=== PATIENT | male | born 1950 | race Caucasian/White ===

== ENCOUNTER 2018-05-10 12:07 | Observation (INO) ==
[2018-05-10 12:39] LABS: Blood Urea Nitrogen 22 mg/dL (7-18)
--- NOTE | 2018-05-10 14:13 | History & Physical Report ---
*Admission Date: 05/10/18 *Chief complaint: abdominal pain *History of present illness: Mr. Salvador is a 67yo M with Hx of HTN, Obesity, Anxiety, and NIDDM who presented to clinic with 1 night of left lower abdominal pain radiating to groin, Nausea, Emesis. Denies dysuria, flank pain, diarrhea. He presented to clinic where he reported being up all night with symptoms. Most prominent in Left lower abd. Pain causing him to double over. Had a single episode of similar Sx 1 week ago that self resolved. Denies hematuria, stream not as strong. Still drinking and staying hydrated. Sent to [facility] for CTR abd/pelvis. Imaging concerning for incarcerated bowel vs colonic fat. Admitted to Med service for Obs and Surgery consult. - no Hx in Pt of Kidney stones, or in family - no Hx of diverticulitis/osis - last C-scope in Jan 2017. Better over the past hour, incarcerated hernia left inguinal region. [facility] History Medical History: Reports:: Cancer, Hyperlipidemia, Hypertension Other Medical History: Reports: Arthritis, Other - *Social History Smoking Status: Unknown if ever smoked Alcohol Intake: never *Family Hx:: No significant family history Review of Systems - Review of Systems Review of systems:: pertinent systems reviewed and negative unless documented below Meds Home Medications Medication Instructions Recorded Confirmed Type allopurinol 100 mg tablet 100 mg PO HS 07/07/17 05/10/18 History bupropion HCl XL 300 mg 24 hr 300 mg PO QDAY tab 07/07/17 05/10/18 History tablet, extended release cetirizine 10 mg tablet 10 mg PO QDAY 07/07/17 05/10/18 History duloxetine 60 mg capsule,delayed 60 mg PO HS 07/07/17 05/10/18 History release lisinopril 5 mg tablet 5 mg PO QDAY 07/07/17 05/10/18 History omeprazole 20 mg capsule,delayed 20 mg PO BID 07/07/17 05/10/18 History release rosuvastatin 10 mg tablet 10 mg PO QHS tab 07/07/17 05/10/18 History tamsulosin 0.4 mg capsule 0.8 mg PO QHS cap 07/07/17 05/10/18 History Celecoxib 200 mg PO BID 05/10/18 05/10/18 History Metformin HCl 1,000 mg PO BID 05/10/18 05/10/18 History Allergies Allergy/AdvReac Type Severity Reaction Status Date / Time NSAIDS (Non-Steroidal Allergy Unknown I-HIVES Verified 05/10/18 15:36 Anti-Inflamma [NSAIDS (NON-STEROIDAL ANTI-INFLAMMA] Exam Vital signs and Labs for Last 24 Hours: Temp Pulse Resp BP Pulse Ox 97.9 F 95 H 18 113/73 97 05/10/18 14:05 05/10/18 14:05 05/10/18 14:05 05/10/18 14:05 05/10/18 14:05 Laboratory Results - last 24 hr 05/10/18 12:17: BUN 22 H, Creatinine 1.08, Estimated GFR 69, Est GFR ( Amer) 83 I & O for Last 24 hours: Intake & Output 05/07/18 05/08/18 05/09/18 05/10/18 23:59 23:59 23:59 23:59 Weight 100.386 kg Narrative: Pleasant and Cooperative, in mild distress leaning forward on exam table, small beads of sweat on his forehead RRR, No m/r/g/h, Nl S1S2, No JVD, 2(+) symmetric pulses, No edema, LCTAB, No wheezes, crackles or rhonchi, Good air movement no CVA tenderness,, soft, NT/ND, BS present Tender firm, unreducable, palpable fullness in left lower abdomen into inguinal region, tender hernia in the left portion of scrotum. Testes descended bilaterally, nontender Assessment and Plan (1) Inguinal hernia of left side without obstruction or gangrene Current visit: Yes Status: Acute Category: Medical Code(s): K40.90 - Unilateral inguinal hernia, without obstruction or gangrene, not specified as recurrent Surgery consulted, appreciate recs - reduced at bedside - keep overnight to monitor for recurrence and PO tolerance - follow-up outpatient for planned surgical intervention barring further recurrence during inpatient (2) Essential hypertension Current visit: Yes Status: Chronic Category: Medical Code(s): I10 - Essential (primary) hypertension POA, resume home regimen (3) Diabetes Current visit: Yes Status: Chronic Qualifiers: Diabetes mellitus type: type 2 Diabetes mellitus [employer] insulin use: without custodial use Diabetes mellitus complication status: without complication Qualified Code(s): E11.9 - Type 2 diabetes mellitus without complications Category: Medical Code(s): E11.9 - Type 2 diabetes mellitus without complications Well controlled on Metformin, control with diabetic diet. No Insulin needed
--- NOTE | 2018-05-10 14:45 | Pharmacy Consult Notes ---
[facility] Pharmacy VTE Monitoring - Patient Demographics Admission date: 05/10/18 Report Date: 05/10/18 Time: 14:44 Allergies/Adverse Reactions: Patient Allergies NSAIDS (Non-Steroidal Anti-Inflamma [NSAIDS (NON-STEROIDAL ANTI-INFLAMMA] Allergy (Unknown, Verified 07/07/17 11:01) I-HIVES Height: 1.83 m Weight: 100.386 kg Patient Problems: Current Active Problems Inguinal hernia of left side without obstruction or gangrene (Acute) - VTE Risk Labs: VTE Related Lab Results BUN 22 mg/dL (7-18) H 05/10/18 12:17 Creatinine 1.08 mg/dL (0.70-1.30) 05/10/18 12:17 Clinical Trial Participant: No - Prophylaxis VTE Prophylaxis Ordered?: Yes Types of VTE Prophylaxis: TEDS Knee High
[2018-05-10 15:01] LABS: Basophils % 0.1 % (0.1-2.0); Eosinophils # 0.1 K/mm3 (0.0-0.4); Eosinophils % 0.6 % (0.1-12.0); Hematocrit 44.8 % (42.0-52.0); Hemoglobin 14.9 g/dL (14.1-18.0); Lymphocytes # 1.5 K/mm3 (0.7-4.5); Mean Corpuscular HGB Conc 33.4 g/dL (31.8-35.4); Mean Corpuscular Hemoglobin 29.4 pg (27.0-31.2); Mean Corpuscular Volume 88.3 fl (80-94); Mean Platelet Volume 10.2 fl (7.4-10.4); Monocytes # 0.5 K/mm3 (0.1-1.0); Monocytes % 5.3 % (1.7-9.3); Neutrophils # 6.6 K/mm3 (1.8-7.8); Platelet Count 160 K/mm3 (142-424); Red Blood Count 5.08 M/mm3 (4.60-6.20); Red Cell Distribution Width 13.1 % (11.5-17.5); White Blood Count 8.6 K/mm3 (4.8-10.8)
[2018-05-10 15:17] LABS: Anion Gap 14.1 mEq/L (5-15); Calcium 9.2 mg/dL (8.5-10.1); Potassium 4.1 mmoL/L (3.5-5.1)
--- NOTE | 2018-05-10 16:36 | Consult Report ---
*Admission Date: 05/10/18 *Chief complaint: Left groin pain *History of present illness: Patient is a 67-year-old white male. He began experiencing left lower quadrant and groin pain yesterday evening. He presented to his primary care physician's office today and was found to have a tender palpable masslike area. Incarcerated versus strangulated hernia was suspected. Patient had CT scan of the abdomen and pelvis ordered. This revealed findings of definite hernia. Surgery was contacted and recommendations were made. Review of Systems - Review of Systems Review of systems:: pertinent systems reviewed and negative unless documented b ow [facility] History Medical History: Reports:: Cancer, Diabetes Mellitus Type 2, Hyperlipidemia, Hypertension Denies:: Diabetes Mellitus Type 1, MRSA Other Medical History: Reports: Arthritis, Cataracts, Other Laterality Cases: Left: Cataract Amputation: No - *Social History Smoking Status: Unknown if ever smoked Alcohol Intake: never Occupational Status: retired Household Members: spouse - Psychiatric History Expresses thoughts of harming self/others: None Suicide Plan Description: No Plan Meds Home Medications Medication Instructions Recorded Confirmed Type allopurinol 100 mg tablet 100 mg PO HS 07/07/17 05/10/18 History bupropion HCl XL 300 mg 24 hr 300 mg PO QDAY tab 07/07/17 05/10/18 History tablet, extended release cetirizine 10 mg tablet 10 mg PO QDAY 07/07/17 05/10/18 History duloxetine 60 mg capsule,delayed 60 mg PO HS 07/07/17 05/10/18 History release lisinopril 5 mg tablet 5 mg PO QDAY 07/07/17 05/10/18 History omeprazole 20 mg capsule,delayed 20 mg PO BID 07/07/17 05/10/18 History release rosuvastatin 10 mg tablet 10 mg PO QHS tab 07/07/17 05/10/18 History tamsulosin 0.4 mg capsule 0.8 mg PO QHS cap 07/07/17 05/10/18 History Celecoxib 200 mg PO BID 05/10/18 05/10/18 History Metformin HCl 1,000 mg PO BID 05/10/18 05/10/18 History Allergies Allergy/AdvReac Type Severity Reaction Status Date / Time NSAIDS (Non-Steroidal Allergy Unknown I-HIVES Verified 05/10/18 15:36 Anti-Inflamma [NSAIDS (NON-STEROIDAL ANTI-INFLAMMA] Exam Vital signs and Labs for Last 24 Hours: Temp Pulse Resp BP Pulse Ox 97.9 F 95 H 18 113/73 97 05/10/18 14:05 05/10/18 14:05 05/10/18 14:05 05/10/18 14:05 05/10/18 14:05 Laboratory Results - last 24 hr 05/10/18 12:17: BUN 22 H, Creatinine 1.08, Estimated GFR 69, Est GFR ( Amer) 83 05/10/18 14:30: WBC 8.6, RBC 5.08, Hgb 14.9, Hct 44.8, MCV 88.3, MCH 29.4, MCHC 33.4, RDW 13.1, Plt Count 160, MPV 10.2, Neut % (Auto) 77.0, Lymph % (Auto) 17.0, [place] % (Auto) 5.3, Eos % (Auto) 0.6, Baso % (Auto) 0.1, Neut # (Auto) 6.6, Lymph # (Auto) 1.5, [place] # (Auto) 0.5, Eos # (Auto) 0.1, Baso # (Auto) 0.0 05/10/18 14:30: Sodium 134 L, Potassium 4.1, Chloride 98, Carbon Dioxide 26, Anion Gap 14.1, BUN 22 H, Creatinine 1.20, Estimated Creat Clear 87, Estimated GFR 61, Est GFR ( Amer) 74, Glucose 104, Calcium 9.2 I & O for Last 24 hours: Intake & Output 05/08/18 05/09/18 05/10/18 05/11/18 11:59 11:59 11:59 11:59 Weight 221 lb 5 oz - Constitutional no acute distress - *Routine Exam Comments: Patient was examined at the bedside. He did have a palpable tender hernia in the left inguinal area. This was soft. With some minimal difficulty I was able to reduce this. Results - Labs 05/10/18 14:30 05/10/18 14:30 Laboratory Results - last 24 hr 05/10/18 12:17: BUN 22 H, Creatinine 1.08, Estimated GFR 69, Est GFR ( Amer) 83 05/10/18 14:30: WBC 8.6, RBC 5.08, Hgb 14.9, Hct 44.8, MCV 88.3, MCH 29.4, MCHC 33.4, RDW 13.1, Plt Count 160, MPV 10.2, Neut % (Auto) 77.0, Lymph % (Auto) 17.0, [place] % (Auto) 5.3, Eos % (Auto) 0.6, Baso % (Auto) 0.1, Neut # (Auto) 6.6, Lymph # (Auto) 1.5, [place] # (Auto) 0.5, Eos # (Auto) 0.1, Baso # (Auto) 0.0 05/10/18 14:30: Sodium 134 L, Potassium 4.1, Chloride 98, Carbon Dioxide 26, Anion Gap 14.1, BUN 22 H, Creatinine 1.20, Estimated Creat Clear 87, Estimated GFR 61, Est GFR ( Amer) 74, Glucose 104, Calcium 9.2 Assessment and Plan (1) Inguinal hernia of left side without obstruction or gangrene Current visit: Yes Status: Acute Category: Medical Code(s): K40.90 - Unilateral inguinal hernia, without obstruction or gangrene, not specified as recurrent - Assessment and plan all Dx Assessment and Plan for all problems:: Patient did have findings of at least a temporary incarcerated hernia. CT scan revealed no evidence of any loop of bowel but merely fatty tissues. This was able to be reduced with some minor difficulty and minimal to moderate patient discomfort at the bedside. He does feel better. I would recommend observation overnight to ensure that he does not develop recurrent hernia and that he is able to tolerate a diet without any nausea. If he does well overnight he may be able to be managed as an outpatient follow-up in the office for consideration of laparoscopic inguinal hernia repair. However, if he develops findings consistent with recurrent incarceration he could require emergent open inguinal hernia although this seems less likely at this time.
--- NOTE | 2018-05-11 06:44 | Progress Note ---
Subjective Patient reports: feels better Narrative: No nausea Exam Vital signs and Labs for Last 24 Hours: Temp Pulse Resp BP Pulse Ox 97.9 F 97 H 18 106/53 L 95 05/11/18 04:00 05/11/18 04:00 05/11/18 04:00 05/11/18 04:00 05/11/18 04:00 Laboratory Results - last 24 hr 05/10/18 12:17: BUN 22 H, Creatinine 1.08, Estimated GFR 69, Est GFR ( Amer) 83 05/10/18 14:30: WBC 8.6, RBC 5.08, Hgb 14.9, Hct 44.8, MCV 88.3, MCH 29.4, MCHC 33.4, RDW 13.1, Plt Count 160, MPV 10.2, Neut % (Auto) 77.0, Lymph % (Auto) 17.0, [place] % (Auto) 5.3, Eos % (Auto) 0.6, Baso % (Auto) 0.1, Neut # (Auto) 6.6, Lymph # (Auto) 1.5, [place] # (Auto) 0.5, Eos # (Auto) 0.1, Baso # (Auto) 0.0 05/10/18 14:30: Sodium 134 L, Potassium 4.1, Chloride 98, Carbon Dioxide 26, Anion Gap 14.1, BUN 22 H, Creatinine 1.20, Estimated Creat Clear 87, Estimated GFR 61, Est GFR ( Amer) 74, Glucose 104, Calcium 9.2 I & O for Last 24 hours: Intake & Output 05/08/18 05/09/18 05/10/18 05/11/18 11:59 11:59 11:59 11:59 Intake Total 240 / 240 Balance 240 / 240 Weight 221 lb 5 oz - *Routine Exam Comments: Hernia soft and reducible. Mildly tender. Progress Note: A&P (1) Inguinal hernia of left side without obstruction or gangrene Status: Acute Current Visit: Yes (2) Essential hypertension Status: Chronic Current Visit: Yes (3) Diabetes Status: Chronic Current Visit: Yes Assessment and Plan for All Diagnoses:: Probable discharge home for follow up as outpatient for discussion of elective surgery.
--- NOTE | 2018-05-11 08:06 | Discharge Summary ---
General - General Admission date:: 05/10/18 Discharge date: 05/11/18 HPI HPI: Mr. Salvador is a 67yo M with Hx of HTN, Obesity, Anxiety, and NIDDM who presented to clinic with 1 night of left lower abdominal pain radiating to groin, Nausea, Emesis. Denies dysuria, flank pain, diarrhea. He presented to clinic where he reported being up all night with symptoms. Most prominent in Left lower abd. Pain causing him to double over. Had a single episode of similar Sx 1 week ago that self resolved. Denies hematuria, stream not as strong. Still drinking and staying hydrated. Sent to [facility] for CTR abd/pelvis. Imaging concerning for incarcerated bowel vs colonic fat. Admitted to Med service for Obs and Surgery consult. - no Hx in Pt of Kidney stones, or in family - no Hx of diverticulitis/osis - last C-scope in Jan 2017. Better over the past hour, incarcerated hernia left inguinal region. Hospital Course Hospital Course: Patient directly admitted from clinic after CT showed incarcerated abdominal contents in the inguinal canal. Surgery consulted. Assessed patient and aggressively reduce tissue. Patient had immediate relief. Monitor overnight with no further pain or discomfort. Tolerating p.o. intake. Stable for discharge home with plan for outpatient follow-up with surgery to discuss elective correction of hernia. Objective Vital signs: Temp Pulse Resp BP Pulse Ox 97.3 F L 102 H 15 114/57 L 96 05/11/18 07:47 05/11/18 07:47 05/11/18 07:47 05/11/18 07:47 05/11/18 07:47 - *Routine HEENT Exam Head: Present: normocephalic, atraumatic Eye: Present: EOMI, PERRL ENT: Present: mucous membranes moist - *Routine Neck Exam Present: supple - *Routine Respiratory Exam Present: accessory muscle use, CTA bilaterally. Absent: prolonged expiratory phase, rales, wheezes, crackles - *Routine Cardiovascular Exam Present: RRR, Normal S1, Normal S2. Absent: murmur - *Routine Abdominal Exam Present: soft, normoactive bowel sounds. Absent: tenderness - *Routine Rectal Exam Patient deferred: visual exam - *Routine Exam Patient deferred: penile exam - *Routine Extremities Exam Absent: cyanosis, clubbing, edema - *Routine Skin Exam Present: intact. Absent: cyanosis, erythema - *Routine Neurological Exam Present: alert, oriented X3. Absent: altered mental status Results Labs on day of discharge: Labs from last 24 hours 05/10/18 05/10/18 05/10/18 14:30 14:30 12:17 WBC 8.6 RBC 5.08 Hgb 14.9 Hct 44.8 MCV 88.3 MCH 29.4 MCHC 33.4 RDW 13.1 Plt Count 160 MPV 10.2 Neut % (Auto) 77.0 Lymph % (Auto) 17.0 [place] % (Auto) 5.3 Eos % (Auto) 0.6 Baso % (Auto) 0.1 Neut # (Auto) 6.6 Lymph # (Auto) 1.5 [place] # (Auto) 0.5 Eos # (Auto) 0.1 Baso # (Auto) 0.0 Sodium 134 L Potassium 4.1 Chloride 98 Carbon Dioxide 26 Anion Gap 14.1 BUN 22 H 22 H Creatinine 1.20 1.08 Estimated Creat Clear 87 Estimated GFR 61 69 Est GFR ( Amer) 74 83 Glucose 104 Calcium 9.2 DS: Diagnosis - Discharge Diagnosis (1) Inguinal hernia of left side without obstruction or gangrene Status: Resolved (2) Essential hypertension Status: Chronic (3) Diabetes Status: Chronic Discharge Plan - Patient Discharge Instructions ACTIVITY: Continue current activity DIET: continue same diet Patient Instructions: Groin Hernia -- Adult - Follow up Plan Follow up with: Aníbal Katz MD [Staff Physician] - 1 week Orville Bhakta MD [Primary Care Provider] - 1 week (please have appt be after surgery follow-up) Disposition: Home, Self-Jail Medications: Home Medications Medication Instructions Recorded Confirmed Type allopurinol 100 mg tablet 100 mg PO HS 07/07/17 05/10/18 History bupropion HCl XL 300 mg 24 hr 300 mg PO QDAY tab 07/07/17 05/10/18 History tablet, extended release cetirizine 10 mg tablet 10 mg PO QDAY 07/07/17 05/10/18 History duloxetine 60 mg capsule,delayed 60 mg PO HS 07/07/17 05/10/18 History release lisinopril 5 mg tablet 5 mg PO QDAY 07/07/17 05/10/18 History omeprazole 20 mg capsule,delayed 20 mg PO BID 07/07/17 05/10/18 History release rosuvastatin 10 mg tablet 10 mg PO QHS tab 07/07/17 05/10/18 History tamsulosin 0.4 mg capsule 0.8 mg PO QHS cap 07/07/17 05/10/18 History Celecoxib 200 mg PO BID 05/10/18 05/10/18 History Metformin HCl 1,000 mg PO BID 05/10/18 05/10/18 History Prescriptions/Medication Reconciliation: Continue duloxetine 60 mg capsule,delayed release 60 mg PO HS bupropion HCl XL 300 mg 24 hr tablet, extended release 300 mg PO QDAY tab omeprazole 20 mg capsule,delayed release 20 mg PO BID rosuvastatin 10 mg tablet 10 mg PO QHS tab allopurinol 100 mg tablet 100 mg PO HS tamsulosin 0.4 mg capsule 0.8 mg PO QHS cap lisinopril 5 mg tablet 5 mg PO QDAY cetirizine 10 mg tablet 10 mg PO QDAY Metformin HCl 1,000 mg PO BID Celecoxib 200 mg PO BID
== END 2018-05-11 09:25 | disposition home or self-care (01) ==
LOC: RAD 12:07 → 2ND 12:07
PROVIDERS: ADMIT Internal Medicine Adolescent Medicine; ATTEND Internal Medicine Adolescent Medicine
CPT/HCPCS: 36415; 74177; 80048; 82565; 84520; 85025; G0378; Q9967

== ENCOUNTER → 2018-05-17 11:05 | Outpatient (CLI) | payer MEDICARE, OTHER, SELFPAY ==
[2018-05-17 11:29] LABS: Basophils % 0.5 % (0.1-2.0); Eosinophils # 0.1 K/mm3 (0.0-0.4); Eosinophils % 2.6 % (0.1-12.0); Hematocrit 45.8 % (42.0-52.0); Hemoglobin 15.2 g/dL (14.1-18.0); Lymphocytes # 1.6 K/mm3 (0.7-4.5); Lymphocytes % 31.5 % (10-50); Mean Corpuscular HGB Conc 33.2 g/dL (31.8-35.4); Mean Corpuscular Hemoglobin 29.4 pg (27.0-31.2); Mean Corpuscular Volume 88.8 fl (80-94); Monocytes # 0.4 K/mm3 (0.1-1.0); Monocytes % 6.8 % (1.7-9.3); Neutrophils # 3.1 K/mm3 (1.8-7.8); Neutrophils % 58.7 % (37.0-80.0); Platelet Count 158 K/mm3 (142-424); Red Blood Count 5.15 M/mm3 (4.60-6.20); Red Cell Distribution Width 13.1 % (11.5-17.5); White Blood Count 5.2 K/mm3 (4.8-10.8)
[2018-05-17 12:37] LABS: Anion Gap 11.4 mEq/L (5-15); Blood Urea Nitrogen 21 mg/dL (7-18); Calcium 9.2 mg/dL (8.5-10.1); Carbon Dioxide 30 mmol/L (21.0-32.0); Chloride 103 mmol/L (98-107); Creatinine,Serum 1.08 mg/dL (0.70-1.30); Estimated Glomerular Filt Rate 69 ml/min (>60); GFR (African American) 83 ML/MIN (>60); Glucose 106 mg/dL (74-106); Potassium 4.4 mmoL/L (3.5-5.1); Sodium 140 mmol/L (136-145)
== END ==
PROVIDERS: Visit Provider Surgery
DX: K40.90 Unilateral inguinal hernia, without obstruction or gangrene, not specified as recurrent (principal)
CPT/HCPCS: 36415; 80048; 85025

== ENCOUNTER → 2018-07-06 11:17 | Outpatient (CLI) | payer MEDICARE, OTHER, SELFPAY ==
[2018-07-07 09:33] LABS: PSA, Free 0.65 ng/mL; Prostate Specific Ag 2.9 ng/mL (0.0-4.0)
== END ==
PROVIDERS: Visit Provider Urology
DX: R97.20 Elevated prostate specific antigen [PSA] (principal); N40.0 Benign prostatic hyperplasia without lower urinary tract symptoms
CPT/HCPCS: 36415; 84153; 84154

== ENCOUNTER → 2019-07-29 12:35 | Outpatient (CLI) | payer MEDICARE, OTHER, SELFPAY ==
--- NOTE | 2019-07-29 12:44 | CA_ITS ---
APPROVED REPORT Publicity Agent: CT Laterality: Bilateral Study Quality: Good Indications: Bruit Risk Factors Hypertension: Hyperlipidemia Diabetes Doppler Spectral Velocity Analysis ECA (R) 80.10/80.10 cm/s ECA (L) 93.50/11.20 cm/s dICA (R) 88.00/32.10 cm/s dICA (L) 76.30/28.40 cm/s Ashly (R) 91.80/30.20 cm/s Ashly (L) 105.50/40.40 cm/s pICA (R) 57.10/20.50 cm/s pICA (L) 62.10/22.40 cm/s dCCA (R) 72.80/17.10 cm/s dCCA (L) 94.20/17.10 cm/s pCCA (R) 101.10/18.80 cm/s pCCA (L) 129.40/28.30 cm/s Vert (R) 30.00/3.10 cm/s Vert (L) 49.60/15.00 cm/s ICA/CCA 0.90 ICA/CCA 1.10 Findings Duplex evaluation demonstrates stenosis of the right proximal internal carotid artery <20% with PSV <140 cm/sec, EDV <100 cm/sec. Duplex evaluation demonstrates stenosis of the left proximal internal carotid artery <20% with PSV <140 cm/sec, EDV <100 cm/sec, and IC/CC Ratio <4.0. Duplex evaluation demonstrates antegrade flow of the bilateral Vertebral Arteries. Bilateral thyroid cysts noted. Conclusion Duplex evaluation demonstrates stenosis of the right proximal internal carotid artery <20% with PSV <140 cm/sec, EDV <100 cm/sec. Duplex evaluation demonstrates stenosis of the left proximal internal carotid artery <20% with PSV <140 cm/sec, EDV <100 cm/sec, and IC/CC Ratio <4.0. Duplex evaluation demonstrates antegrade flow of the bilateral Vertebral Arteries. Bilateral thyroid cysts noted. Electronically signed by : Jone Skelton, 07/29/2019 16:43:38
== END ==
PROVIDERS: PCP Internal Medicine Adolescent Medicine; Visit Provider Internal Medicine Adolescent Medicine
DX: R09.89 Other specified symptoms and signs involving the circulatory and respiratory systems (principal)
CPT/HCPCS: 93880

== ENCOUNTER 2020-05-02 11:08 | Outpatient (CLI) | payer MEDICARE, OTHER, SELFPAY ==
[2020-05-02] VITALS (9 sets, daily range): BP systolic 110–120; BP diastolic 60–76; PULSE 79–89; RESP 16; TEMP 36.8–37.1; O2SAT 94–96
== END 2020-05-02 14:10 | disposition home or self-care (01) ==
LOC: COVID.OUT 11:10 → INF 11:15
PROVIDERS: PCP Internal Medicine Adolescent Medicine; Visit Provider Internal Medicine Adolescent Medicine
DX: U07.1 COVID-19 (principal)
CPT/HCPCS: 96365

== ENCOUNTER → 2020-05-11 10:27 | Outpatient (CLI) | payer MEDICARE, OTHER, SELFPAY ==
[2020-05-14 08:18] LABS: Covid-19 Nasal PCR Sendout Lex POSITIVE
== END ==
PROVIDERS: Visit Provider Internal Medicine Gastroenterology
DX: Z20.828 Contact with and (suspected) exposure to other viral communicable diseases (principal); U07.1 COVID-19
CPT/HCPCS: U0004

== ENCOUNTER → 2020-05-14 08:06 | Day surgery (SDC) | payer MEDICARE, OTHER, SELFPAY ==
[2020-05-08 10:34] VITALS: BMI 32.5
--- NOTE | 2020-05-14 09:24 | SUR.PREOP ---
Pt. case cancelled per Dr. Le. Pt. tested positive for Covid on 05/12/20.
== END ==
PROVIDERS: PCP Internal Medicine Adolescent Medicine; Visit Provider Internal Medicine Gastroenterology
PROC: 0DJD8ZZ Inspection of Lower Intestinal Tract, Via Natural or Artificial Opening Endoscopic (ICD-10-PCS; CPT 45378; principal; 2020-05-14 09:00)
DX: Z53.8 Procedure and treatment not carried out for other reasons (principal); Z12.11 Encounter for screening for malignant neoplasm of colon; U07.1 COVID-19

== ENCOUNTER → 2020-12-18 15:23 | Outpatient (CLI) | payer MEDICARE, OTHER, SELFPAY ==
--- NOTE | 2020-12-18 15:33 | MR_ITS ---
PROCEDURE INFORMATION: Exam: MR Right Lower Extremity Joint Without Contrast, Knee Exam date and time: 12/18/2020 3:33 PM Age: 70 years old Clinical indication: Right; Patient HX: Medial sided knee pain. Knee instability. No injury or trauma. Knee swelling. No prior. ; Additional info: Effusion, right knee TECHNIQUE: Imaging protocol: MR of the Right lower extremity joint without contrast. Exam focused on the knee. COMPARISON: No relevant prior studies available. FINDINGS: Limitations: Motion artifact. Multiple sequences repeated. Bones and cartilage: There is either a contusion or reactive bone marrow edema involving the medial tibial plateau. There is no acute fracture or dislocation. Mild marginal osteophytes involve the lateral joint compartment and intercondylar notch region. There is grade IV (out of IV) full-thickness cartilage loss involving a significant portion of the lateral compartment posteriorly. There is grade III (out of IV) high-grade partial-thickness cartilage loss involving the femoral trochlea with probable superimposed small foci of full-thickness cartilage loss. There is grade II (out of IV) low-grade partial-thickness cartilage loss involving the medial compartment. Joint spaces: A large joint effusion involves the knee. Fat pads of knee: An osteochondral body near the apex of Hoffa's fat pad measures approximately 1.2 cm. Medial meniscus: Complex tearing involves the body and posterior horn of the medial meniscus with abnormal signal extending to both the superior and inferior meniscal surfaces. Lateral meniscus: A vertical longitudinal tear involves the lateral meniscus with associated displacement of the free edge fragment into the intercondylar notch region (bucket-handle tear). Anterior cruciate ligament: Increased T2 signal involving the intact anterior cruciate ligament suggests sprain/low-grade partial thickness tear, if in the setting of trauma. Alternatively, mucoid degeneration could produce this appearance in a patient of this age. Posterior cruciate ligament: Intermediate signal intensity involving the intact posterior cruciate ligament likely represents sprain in the setting of trauma. Medial capsule and supporting structures: Edema is present around the medial collateral ligament, consistent with a low-grade sprain (grade I injury). Lateral capsule and supporting structures: Abnormal increased T2 signal within the fibular collateral ligament is consistent with a low-grade partial-thickness tear or high-grade sprain (grade II injury). Moderate tendinosis involves the proximal popliteus tendon. Extensor mechanism of knee: Moderate tendinosis involves the patellar tendon. Mild tendinosis involves the distal quadriceps tendon. Muscles: Unremarkable. Soft tissues: Soft tissue edema surrounds the medial collateral ligament. IMPRESSION: 1. Complex tearing of the medial meniscus body and posterior horn. 2. Bucket-handle tear of the lateral meniscus. 3. Probable low-grade partial-thickness tear (sprain) of the anterior cruciate ligament. 4. Sprain of the intact posterior cruciate ligament. 5. Sprain of the medial collateral ligament (grade I injury). 6. Fibular collateral ligament low-grade partial-thickness tear or high-grade sprain (grade II injury). 7. Extensive grade IV (out of IV) full-thickness cartilage loss involving the lateral joint compartment posteriorly, consistent with severe primary osteoarthritis. 8. Grade III (out of IV) high-grade partial-thickness cartilage loss of the femoral trochlea. 9. Large knee joint effusion.
== END ==
PROVIDERS: PCP Internal Medicine Adolescent Medicine; Visit Provider Internal Medicine Adolescent Medicine
DX: M25.461 Effusion, right knee (principal)
CPT/HCPCS: 73721

== ENCOUNTER → 2021-02-12 20:49 | Outpatient (CLI) | payer MEDICARE, OTHER, SELFPAY ==
[2021-02-12 21:10] LABS: Basophils # 0.1 K/mm3 (0-0.2); Basophils % 1.3 % (0.1-2.0); Eosinophils # 0.1 K/mm3 (0.0-0.4); Eosinophils % 1.8 % (0.1-12.0); Hematocrit 41.7 % (42.0-52.0); Hemoglobin 13.8 g/dL (14.1-18.0); Lymphocytes # 1.1 K/mm3 (0.7-4.5); Lymphocytes % 24.7 % (10-50); Mean Corpuscular HGB Conc 33.1 g/dL (31.8-35.4); Mean Corpuscular Hemoglobin 30.7 pg (27.0-31.2); Mean Corpuscular Volume 92.8 fl (80-94); Mean Platelet Volume 11.5 fl (7.4-10.4); Monocytes # 0.3 K/mm3 (0.1-1.0); Monocytes % 6.8 % (1.7-9.3); Neutrophils # 2.8 K/mm3 (1.8-7.8); Neutrophils % 65.5 % (37.0-80.0); Platelet Count 177 K/mm3 (142-424); Red Cell Distribution Width 13.7 % (11.5-17.5); White Blood Count 4.3 K/mm3 (4.8-10.8)
[2021-02-12 21:32] LABS: Alanine Aminotransferase 16 U/L (12-78); Albumin Level 3.9 g/dl (3.5-5.0); Albumin/Globulin Ratio 1.7 (1.1-1.8); Alkaline Phosphatase 56 U/L (38-126); Anion Gap 13.7 mEq/L (5-15); Aspartate Amino Transferase 21 U/L (17-59); Bilirubin,Total 0.2 mg/dl (0.2-1.3); Blood Urea Nitrogen 21 mg/dl (9-20); Calcium 9.4 mg/dl (8.4-10.2); Carbon Dioxide 24 mmol/L (22.0-30.0); Chloride 105 mmol/L (98-107); Chol/HDL Ratio 2.4 (1-3.5); Cholesterol 95 mg/dl (140-200); Estimated Glomerular Filt Rate 84 ml/min (>60); GFR (African American) 102 ML/MIN (>60); Globulin 2.3 g/dL (1.3-3.2); Glucose 145 mg/dl (74-100); HDL Cholesterol 40 mg/dl (40-60); Potassium 4.7 mmoL/L (3.5-5.1); Sodium 138 mmol/L (136-145); Total Protein,Serum 6.2 g/dl (6.3-8.2); Triglycerides 84 mg/dl (30-150); VLDL Cholesterol 17 mg/dL (0-40)
[2021-02-12 21:43] LABS: Direct LDL Cholesterol 42.67 mg/dL (100-129)
[2021-02-14 08:09] LABS: Hemoglobin A1C 6.7 % (4.0-6.0)
== END ==
PROVIDERS: Visit Provider Internal Medicine Adolescent Medicine
DX: E11.9 Type 2 diabetes mellitus without complications (principal); E78.5 Hyperlipidemia, unspecified; M17.0 Bilateral primary osteoarthritis of knee; Z79.84 Long term (current) use of oral hypoglycemic drugs
CPT/HCPCS: 80053; 80061; 83036; 85025

== ENCOUNTER 2021-03-14 11:00 | Outpatient (RCR) | payer MEDICARE, OTHER, SELFPAY | END 2021-04-03 07:41 | disposition home or self-care (01) | LOC: PT.CARL 11:00 | PROVIDERS: PCP Internal Medicine Adolescent Medicine; Visit Provider Orthopaedic Surgery | DX: S83.206A Unspecified tear of unspecified meniscus, current injury, right knee, initial encounter (principal) | CPT/HCPCS: 97014; 97110; 97112; 97140; 97163; 97164; G0283 ==

== ENCOUNTER 2022-06-06 11:00 | Outpatient (RCR) | payer MEDICARE, OTHER, SELFPAY | END 2022-06-11 09:10 | disposition home or self-care (01) | LOC: PT.CARL 11:00 | PROVIDERS: PCP Internal Medicine Adolescent Medicine; Visit Provider Orthopaedic Surgery | DX: M17.12 Unilateral primary osteoarthritis, left knee (principal); Z96.652 Presence of left artificial knee joint | CPT/HCPCS: 97010; 97014; 97110; 97140; 97163; 97164; 97530; G0283 ==

== ENCOUNTER 2022-09-04 11:00 | Outpatient (RCR) | payer MEDICARE, OTHER, SELFPAY | END 2022-09-15 07:30 | disposition home or self-care (01) | LOC: PT 11:00 | PROVIDERS: PCP Internal Medicine Adolescent Medicine; Visit Provider Orthopaedic Surgery | DX: M25.561 Pain in right knee (principal); M17.11 Unilateral primary osteoarthritis, right knee; Z96.651 Presence of right artificial knee joint | CPT/HCPCS: 97010; 97014; 97110; 97112; 97140; 97163; 97164; 97530; G0283 ==

== ENCOUNTER → 2022-12-31 08:26 | Outpatient (CLI) | payer MEDICARE, OTHER, SELFPAY ==
--- NOTE | 2022-12-31 08:30 | US_ITS ---
FINAL REPORT CLINICAL HISTORY: H/O TOBACCO USE COMPARISON: None FINDINGS: ULTRASOUND ABDOMINAL AORTA Findings: Sagittal and transverse images with Doppler exam was performed of the aorta. There is no evidence of abdominal aortic aneurysm. Aorta measures up to 2 cm. No significant plaque disease is noted. However there is bowel gas obscuring the lower portion of the abdominal aorta and the origins of the iliac arteries, limiting evaluation of this area Aorta is patent by Doppler exam without gross stenosis. IMPRESSION: No evidence of aortic aneurysm, although distal abdominal aorta and iliac artery origins evaluation somewhat limited by overlying bowel gas. Reviewed, Interpreted and Dictated by Jose C Munroe MD Transcribed by Wendy Pittman Authenticated and [facility]
== END ==
PROVIDERS: PCP Internal Medicine Adolescent Medicine; Visit Provider Internal Medicine Adolescent Medicine
DX: Z87.891 Personal history of nicotine dependence (principal)
CPT/HCPCS: 76770

== ENCOUNTER 2024-05-23 06:35 | Day surgery (SDC) | payer MEDICARE, OTHER, SELFPAY ==
[2024-05-19 14:14] VITALS: BMI 35.2
[2024-05-23 07:20] VITALS: BP 146/62; PULSE 122; RESP 18; TEMP 36.2; O2SAT 94
--- NOTE | 2024-05-23 07:22 | EXP.ANES.CKL ---
[facility] Disclaimer: The information contained in this section may have been updated after the patient was seen, as this information can be updated by other users. Medical History (Updated 05/19/24 @ 14:21 by Nidhi Pa RN) Type 2 diabetes mellitus Gout GERD (gastroesophageal reflux disease) HTN (hypertension) Surgical History (Updated 05/19/24 @ 14:21 by Nidhi Pa RN) History of nasal surgery History of hernia surgery History of knee replacement procedure of right knee History of knee replacement procedure of left knee Family History (Updated 05/19/24 @ 14:22 by Nidhi Pa RN) Mother Hypertension Afib Type 2 diabetes mellitus Father Colon cancer Social History (Updated 05/19/24 @ 14:13 by Nidhi Pa RN) Smoking Status: Former smoker second hand exposure: Yes alcohol intake: never substance use type: denies use current occupational status: retired Travel in the last 8 weeks: None household members: family housing: house current occupational exposures/hazards: No caffeine: No Have you lived/traveled outside [place] in past 30 days?: No Contact w/someone who lives/traveled outside [place] past 30 days?: No Exposure to someone with infectious disease in past 14 days?: No Do you have a fever (greater than 100.4 F or 38 C)?: No Have you tested positive for COVID-19: Yes Exposed to someone with COVID-19 in past 14 days?: No Do you have a sore throat?: No Do you have a cough?: No Do you have any weakness?: No Are you experiencing any nausea/vomitting?: No Do you have any diarrhea?: No Are you experiencing any unusual bleeding?: No Do you have any muscle aches/pain?: No Do you have any abdominal pain?: No Are you experiencing loss of taste or smell?: No [facility] Anesthesia Checklist Patient Identification Patient Identification: Arm Band and Verbal (Name & ) Structural Data Admitted From: Home Planned Operative Procedure/s: Colonoscopy Consent for Planned Operative Procedure(s) Verified: Yes Verified Documents: Surgical Consent and History and Physical NPO Status Verified Time NPO: 05:00 Chart Verification Results Verified: CBC, BMP and ECG Additional verifications Fingerstick Blood Glucose: 142 Patient : No Anesthesia Reactions: No Hx Blood Transfusions: No Blood Transfusion Reaction: No Cardiovascular Assessment Heart Sounds: S1 & S2 Pulse Rhythm: Irregular Airway Assessment Mallampati Score:: Class II C-Spine Mobility Assessed: Yes TMJ Mobility Assessed: Yes Dentition: Good Dentition (Nothing loose per pt.) Neurological Assessment Level of Consciousness: Awake, Alert, Appropriate and Follows Commands Hx Seizures: No Numbness or tingling in extremities: No Anesthesia Plan Anesthesia Risk discussed: Yes Anesthesia Plan: Verified ASA Class: III Anesthesia Type: MAC
[2024-05-23] MEDS: LACTATED RINGERS 1000ML 1,000 ML 25 ML IV (07:26)
[2024-05-23 07:31] LABS: POC Glucose,Bedside 142 (70-110)
--- NOTE | 2024-05-23 07:45 | EXP.HP ---
History of Present Illness *Admission Date: 05/23/24 *History of present illness: Mr. Salvadro is a 73-year-old gentleman who is here for surveillance colonoscopy. He does have a personal history of advanced adenomatous colon polyps and a family history of colon cancer. The examination is deemed medically necessary for surveillance colonoscopy. The patient has been seen, interviewed and examined prior to the procedure by both myself and the anesthesia provider. [facility] Disclaimer: The information contained in this section may have been updated after the patient was seen, as this information can be updated by other users. Medical History (Updated 05/23/24 @ 07:49 by Fausto Le II, MD) Type 2 diabetes mellitus Gout GERD (gastroesophageal reflux disease) HTN (hypertension) Surgical History History of nasal surgery History of hernia surgery History of knee replacement procedure of right knee History of knee replacement procedure of left knee Family History Mother Hypertension Afib Type 2 diabetes mellitus Father Colon cancer Social History Smoking Status: Former smoker second hand exposure: Yes alcohol intake: never substance use type: denies use current occupational status: retired Travel in the last 8 weeks: None household members: family housing: house current occupational exposures/hazards: No caffeine: Yes Have you lived/traveled outside [place] in past 30 days?: No Contact w/someone who lives/traveled outside [place] past 30 days?: No Exposure to someone with infectious disease in past 14 days?: No Do you have a fever (greater than 100.4 F or 38 C)?: No Have you tested positive for COVID-19: Yes Exposed to someone with COVID-19 in past 14 days?: No Do you have a sore throat?: No Do you have a cough?: No Do you have any weakness?: No Are you experiencing any nausea/vomitting?: No Do you have any diarrhea?: No Are you experiencing any unusual bleeding?: No Do you have any muscle aches/pain?: No Do you have any abdominal pain?: No Are you experiencing loss of taste or smell?: No Other Medical History Have you received the Flu Vaccine for this season: Yes Have you received the Pneumonia Vaccine: Yes Review of Systems Review of Systems Review of systems (narrative): Negative *Cardiovascular Comments: Negative *Gastrointestinal Comments: Negative *Genitourinary Comments: Negative *Musculoskeletal Comments: Negative *Neurologic Comments: Negative Meds Home Medications and Allergies Home Medications ?Medication ?Instructions ?Recorded ?Confirmed ?Type allopurinol 100 mg tablet 100 mg PO HS GOUT 07/07/17 05/23/24 History (Zyloprim) bupropion HCl 300 mg 24 hr tablet, 300 mg PO QDAY Anxiety 07/07/17 05/23/24 History extended release (Wellbutrin XL) cetirizine 10 mg tablet (All Day 10 mg PO QDAY ALLERGIES 07/07/17 05/23/24 History Allergy (cetirizine)) duloxetine 60 mg capsule,delayed 60 mg PO HS Anxiety 07/07/17 05/23/24 History release (Cymbalta) lisinopril 5 mg tablet 5 mg PO QDAY BP 07/07/17 05/23/24 History omeprazole 20 mg capsule,delayed 20 mg PO BID GERD 07/07/17 05/23/24 History release rosuvastatin 10 mg tablet (Crestor) 10 mg PO QHS Cholesterol 07/07/17 05/23/24 History tamsulosin 0.4 mg capsule (Flomax) 0.8 mg PO QHS PROSTATE 07/07/17 05/23/24 History celecoxib 200 mg capsule (Celebrex) 200 mg PO BID Arthritis 05/10/18 05/23/24 History metformin 1,000 mg tablet 500 mg PO DAILY Diabetes 05/10/18 05/23/24 History [id number] 140 gram-sod sulfate 9 See Rx Instructions PO .COMPLEX #3 05/13/24 05/23/24 Rx gram-NaCl 5.2gram-KCl-C oral pwdr ea packs (Plenvu) semaglutide 7 mg tablet (Rybelsus) 7 mg PO DAILY 05/23/24 05/23/24 History valacyclovir 500 mg tablet 500 mg PO DAILY 05/23/24 05/23/24 History New Prescriptions to Start Prescriptions: Allergies Allergy/AdvReac Type Severity Reaction Status Date / Time NSAIDS (Non-Steroidal Allergy Unknown I-HIVES Verified 07/06/18 10:30 Anti-Inflamma (NSAIDS (NON-STEROIDAL ANTI-INFLAMMA) Exam Data for Last 24 hours Vital signs and Labs for Last 24 Hours: Temp Pulse Resp BP Pulse Ox O2 Del Method 97.2 F L 122 H 18 146/62 H 94 L Room Air 05/23/24 07:20 05/23/24 07:20 05/23/24 07:20 05/23/24 07:20 05/23/24 07:20 05/23/24 07:20 Laboratory Results - last 24 hr 05/23/24 07:22: POC Glucose 142 H *Routine HEENT Exam Head: Present normocephalic Eye: Present EOMI and PERRL ENT: Present mucous membranes moist *Routine Neck Exam Neck: Present supple *Routine Respiratory Exam Respiratory: Present CTA bilaterally *Routine Cardiovascular Exam Cardiovascular: Present RRR *Routine Abdominal Exam Abdominal: Present soft and normoactive bowel sounds; Absent tenderness *Routine Rectal Exam Rectal:: deferred *Routine Genitalia Exam Genitalia:: deferred *Routine Extremities Exam Extremities: Absent cyanosis, clubbing or edema *Routine Skin Exam Skin: Present warm; Absent rash *Routine Neurological Exam Neurological: Present alert and oriented X3 Assessment and Plan *Assessment and plan (1) Personal history of adenomatous and serrated colon polyps: Status: Acute Category: Medical Code(s): Z86.0101 - Personal history of adenomatous and serrated colon polyps (2) Family history of colon cancer in father: Status: Acute Category: Medical Code(s): Z80.0 - Family history of malignant neoplasm of digestive organs Plan A/P: 1. Personal history of advanced adenomatous colon polyps and family history (father with colon cancer) is the preprocedural diagnosis. The patient will be anesthetized/sedated using MAC sedation. The patient has been seen and examined. Cardiac and lung assessment prior to the examination is stable. Proceed with planned surveillance colonoscopy
--- NOTE | 2024-05-23 07:50 | P.PCN_ITS ---
[facility] Procedure Note Date: 05/23/24 Time: 08:16 Procedure Note:: Colonoscopy Procedure Report: Colonoscopy with cold snare polypectomy Endoscopist: Fausto Le II, MD Referring physician: Denys Chauhan M.D. Date of Procedure: May 21, 2024 Equipment: Olympus 190 variable stiffness pediatric colonoscope Sedation: MAC sedation Indication: Mr. Salvador is a 73-year-old gentleman with a personal history of advanced adenomatous colon polyps and is on shorter surveillance interval. His last colonoscopy was in January 2023. His father had colon cancer at the age of 72. The patient reports no abdominal pain, weight loss, change in his bowel habits or rectal bleeding. Procedure: Prior to the procedure, a history and physical exam was performed, and patient's medications and allergies were reviewed. The risks, benefits and alternatives of the sedation and procedure were discussed with the patient. All questions were answered and informed consent was obtained. The patient was brought to the procedure room. Patient identification and proposed procedure were verified by the physician and the nurse. The patient was placed in a left lateral decubitus position and the scope was passed under direct vision. Throughout the procedure, the patient's blood pressure, pulse, and oxygen saturations were monitored continuously. The colonoscopy was accomplished without difficulty. The patient tolerated the procedure well. Findings: On digital rectal examination there was normal rectal tone. There were no external hemorrhoids. There were external tags. The prostate was 2-3+, smooth, soft, symmetric without nodules. The colonoscope was introduced through the anal canal to the rectum and advanced to the cecum. The ileocecal valve and appendiceal orifice were identified. The scope was advanced a short distance into the ileum which appeared grossly normal. The scope was then withdrawn into the colon. There were 5 diminutive polyps (cecum x 2 (4 and 4 mm), ascending x 1 (5 mm), sigmoid x 1 (4 mm) and rectum x 1 (3 mm)). These were all removed via cold snare polypectomy. There was some colonic redundancy. The remaining cecum, ascending, transverse, descending, sigmoid and rectum were grossly normal. There were no other mucosal abnormalities identified. Upon retroflexion within the rectum there were grade 2 internal hemorrhoids.The preparation was excellent throughout with [place] Preparation Score of 9. The cecal time was 14 minutes. Impression: 1. Diminutive colonic polyps x 5 2. Grade 2 internal hemorrhoids Plan: I will follow-up the polyp histology and recommend repeat surveillance colonoscopy again in 3 years because of his history of advanced adenomatous colon polyps and family history and recurrent interval small adenomas at fairly short surveillance.
[2024-05-23 07:51] VITALS: O2SAT 97
[2024-05-23 08:22] VITALS: BP 102/68; PULSE 98; RESP 18; TEMP 36.2; O2SAT 92
--- NOTE | 2024-05-23 08:29 | ECG_ITS ---
APPROVED REPORT Exam: Resting ECG HR:95 bpm ECG Measurements Heart Rate 95 AXES WI 134 P 67 QRSd 118 QRS 27 QT 347 T -3 QTc 400 Conclusion SINUS RHYTHM WITH SINUS ARRHYTHMIA MODERATE INTRAVENTRICULAR CONDUCTION DELAY [110+ ms QRS DURATION] BORDERLINE ECG UNCONFIRMED REPORT Electronically signed by : Denys Chauhan MD 05/24/2024 14:28:43
[2024-05-23 08:32] VITALS: BP 110/70; PULSE 93; RESP 18; O2SAT 96
[2024-05-23 08:42] VITALS: BP 109/65; PULSE 94; RESP 18; O2SAT 94
--- NOTE | 2024-05-23 08:46 | SUR.PHASEII ---
Patient's FSBS 162 @ 0826
[2024-05-23 08:52] VITALS: BP 111/70; PULSE 94; RESP 18; O2SAT 96
[2024-05-25 12:52] LABS: POC Glucose,Bedside 162 (70-110)
== END 2024-05-23 08:52 | disposition home or self-care (01) ==
PROVIDERS: PCP Internal Medicine Adolescent Medicine; Visit Provider Internal Medicine Gastroenterology
PROC: 0DJD8ZZ Inspection of Lower Intestinal Tract, Via Natural or Artificial Opening Endoscopic (ICD-10-PCS; CPT 45378; principal; 2024-05-23 08:00)
DX: Z12.11 Encounter for screening for malignant neoplasm of colon (principal); D12.5 Benign neoplasm of sigmoid colon; D12.0 Benign neoplasm of cecum; D12.2 Benign neoplasm of ascending colon; K62.1 Rectal polyp; Z86.0101 Personal history of adenomatous and serrated colon polyps; Z80.0 Family history of malignant neoplasm of digestive organs; E11.9 Type 2 diabetes mellitus without complications; I10 Essential (primary) hypertension; Z79.899 Other long term (current) drug therapy; K64.1 Second degree hemorrhoids
CPT/HCPCS: 45385; 82962; 88305; 93005; J7120